=== PATIENT | male | born 1970 | race Caucasian/White ===

== ENCOUNTER 2016-12-26 18:38 | Inpatient (IN) | payer OTHER ==
--- NOTE | ~2016-12-26 | CR72 ---
[facility] A Service of [facility] & [facility] RADIOLOGY TEXT RESULTS PATIENT: YOLANDA ROGERS LOCATION: [facility] 328-01 : [birth year] UNIT #: [id number] AGE: [address]: Zaki Pop MD SEX: M ORDER DR: [id number] [facility] [address]. [place], [place] [address] [id number] I MR#: [id number] Acc #: [id number] NAME: YOLANDA ROGERS : 1970 SEX: M STUDY DATE/TIME: 12/26/2016 18:25 UNIT: [facility] ROOM: 10346 STUDY DESCRIPTION: CR Chest Single View Portable Attending Physician: Zaki Pop M.D. Ordering Physician: Lexie Barfield M.D. MEDICAL IMAGING REPORT This report is preliminary unless electronic signature is present EXAM Portable chest HISTORY Acute mental status decline, low oxygen saturation and chest pain today. FINDINGS The cardiac size and pulmonary vascularity are within normal limits. No airspace infiltrates or effusions. Right IJ port catheter tip is in the right atrium, 4.5 cm beyond the junction of the SVC and right atrium. Surgical clips in the left neck. IMPRESSION 1. No acute findings and no evidence of active disease. Lungs are clear. 2. Right IJ port catheter tip is in the right atrium 4.5 cm beyond the junction of the SVC and right atrium. Dictated by... Lonnie Garrido M.D. THIS IS AN ELECTRONICALLY VERIFIED REPORT Lonnie Garrido M.D. at 12/27/2016 11:35 PM DFJuan/ghulam TD: 12/27/2016 12:14 JOB #: [id number] MEDICAL IMAGING REPORT COPY
--- NOTE | ~2016-12-26 | CT71 ---
[facility] A Service of [facility] RADIOLOGY TEXT RESULTS PATIENT: YOLANDA ROGERS LOCATION: [facility] 328-01 : 66 UNIT #: [id number] AGE: [address]: Zaki Pop MD SEX: M ORDER DR: [id number] [facility] [address] [place], [place] [address] [id number] I MR#: [id number] Acc #: [id number] NAME: YOLANDA ROGERS : 1970 SEX: M STUDY DATE/TIME: 12/26/2016 18:11 [facility] RO[facility]: 91158 STUDY DESCRIPTION: CT Head Wo Contrast Attending Physician: Zaki Pop M.D. Ordering Physician: Lexie Barfield M.D. MEDICAL IMAGING REPORT This report is preliminary unless electronic signature is present EXAM CT brain without contrast HISTORY Acute mental status change and lethargy for 2 days. No recent injury. TECHNIQUE This CT examination was performed with one or more of the following radiation dose reduction techniques: automatic exposure control, adjustment of mA and/or kV according to patient size, and iterative reconstruction. FINDINGS CT brain without contrast demonstrates no intracranial hemorrhage, mass or edema. No midline shift or ventricular dilatation. No extraaxial fluid collection. Minimal chronic ischemic changes in the deep white matter bilaterally and mild generalized cerebral cortical atrophy. IMPRESSION 1. No acute findings. 2. Mild generalized cerebral cortical atrophy and minimal chronic ischemic changes in the deep white matter bilaterally. Dictated by... Lonnie Garrido M.D. THIS IS AN ELECTRONICALLY VERIFIED REPORT Lonnie Garrido M.D. at 12/27/2016 11:35 PM DFJuan/ghulam TD: 12/27/2016 12:13 JOB #: [id number] [facility] A Service of [facility] & [facility] RADIOLOGY TEXT RESULTS PATIENT: YOLANDA ROGERS LOCATION: [facility] 328-01 : 66 UNIT #: [id number] AGE: [address]: Zaki Pop MD SEX: M ORDER DR: MEDICAL IMAGING REPORT COPY
--- NOTE | ~2016-12-26 | HP ---
Unit #: [id number] #: [id number] Patient: YOLANDA ROGERS [id number] [address] [address] [id number] I MR#: [id number] NAME: YOLANDA ROGERS ROOM: 13062 Age: 46 Sex: M Admission Date: 12/27/2016 : 1970 Attending Physician: Zaki Pop M.D. HISTORY AND PHYSICAL CHIEF COMPLAINT Patient was transferred from detox for hypoxia and increasing confusion. DISCUSSION This is a 46-year-old gentleman with a history of alcohol abuse, history of seizures secondary to withdrawals, history of throat cancer. He admitted to [facility] on 12/22 for detox for alcohol and he has been found to be hypoxic and increasing confusion today and patient was sent to ER. Patient has one-to-one sitter at this time and patient is unable to give me any history. He is totally lethargic. He was given Ativan earlier in the ER. Now, totally lethargic, unable to give me any history. Most of the information obtained through chart. PAST MEDICAL HISTORY 1. History of throat cancer. 2. History of seizure secondary to alcohol withdrawal. 3. History of polysubstance abuse. PAST SURGICAL HISTORY 1. Questionable history of resection of left side of neck in 2016. 2. History of PEG in the past. SOCIAL HISTORY Patient has a history of drinking alcohol, who drinks a half gallon of vodka with mixed drinks with some beer on a daily basis. Also, Urine toxicology positive for marijuana. ALLERGIES No known drug allergies. MEDICATIONS Medications from transfer from [facility]: 1. Nicotine patch. 2. Seroquel 100 mg daily. 3. Seroquel 200 mg at bedtime. 4. Vitamin B1 200 mg daily. 5. Folic acid 1 mg daily. 6. Z-complex one capsule three times a day. 7. Lorazepam 0.5 mg daily. REVIEW OF SYSTEMS Twelve review of systems unobtainable from the patient. PHYSICAL EXAMINATION Unit #: [id number] #: [id number] Patient: YOLANDA ROGERS GENERAL: Middle aged man lying in the bed comfortably. He is sleeping, drowsy. He is alert, oriented x0 at this time. CURRENT VITAL SIGNS: Temperature 97.6, heart rate 99, respiratory rate 14, blood pressure 103/101. Oxygen 100% on room air. HEENT: Pupils equal, reactive to light and accommodation. Head is normocephalic, atraumatic. NECK: Supple. No JVD, no thyromegaly. HEART: S1, S2. Regular rate and rhythm. LUNGS: Clear to auscultation. No rhonchi, no wheezing. ABDOMEN: Soft, nontender, nondistended. EXTREMITIES: Inspection normal. No cyanosis, no clubbing, no edema. NEURO: Unable to do neuro exam at this time. DIAGNOSTIC STUDIES LABORATORY: White count 5, hemoglobin 11, hematocrit 32, platelets 101. INR is 1.4, lactic acid level 0.5. Chemistry - sodium 134, potassium 3.2, chloride 99, glucose (1) , BUN 5, creatinine 0.4. LFT within normal limits. UA is negative. Influenzae negative. Urine toxicology positive for benzo and marijuana and TCA. Alcohol level less than 5. ASSESSMENT AND PLAN 1. Alcohol withdrawal, delirium tremens: Will keep the patient on one-to-one. Start on CIWA protocol. IV fluids, D5 half normal saline with thiamine and folic acid. 2. History of throat cancer. 3. History of seizure secondary to alcohol withdrawal. 4. Polysubstance abuse. 5. Patient has hematuria secondary to traumatic Webb and the catheter urine now seems clear. 6. DVT prophylaxis: Will place the patient on SCDs. Dictated by Feliberto Alejandro TD: 12/27/2016 11:45 JOB #: [id number] Unit #: [id number] #: [id number] Patient: YOLANDA ROGERS HISTORY AND PHYSICAL X X HISTORY AND PHYSICAL
--- NOTE | ~2016-12-26 | OR ---
Unit #: [id number] #: [id number] Patient: YOLANDA ROGERS [id number] [address] [address] [id number] I MR#: [id number] NAME: YOLANDA ROGERS ROOM: 328 Date of Procedure: 12/30/2016 Admission Date: 12/27/2016 Surgeon: Isaias Gill M.D. : 1970 Attending Physician: Zaki Pop M.D. OPERATIVE REPORT PREOPERATIVE DIAGNOSES Gross hematuria, benign prostatic hypertrophy, urinary retention. POSTOPERATIVE DIAGNOSES Gross hematuria, benign prostatic hypertrophy, urinary retention. PROCEDURE PERFORMED Webb catheter insertion. Difficult Webb catheter by nursing. Urology consult for placement of Webb catheter. ANESTHESIA Local anesthesia with lidocaine jelly. DESCRIPTION OF PROCEDURE The patient was prepped and draped in the usual fashion. An 18-D[place]ib[place]ian 3-way catheter was placed into the bladder with aid of the catheter guide. There was return of clear urine. The balloon was filled with 20 mL of sterile water. The catheter was irrigated with return of clear urine and placed to gravity drainage. The patient tolerated the procedure well. ESTIMATED BLOOD LOSS 10 mL. COMPLICATIONS None. SPECIMENS None. DRAINS Webb catheter to gravity drainage. PLAN We will keep Webb catheter x1 week. We will start Flomax. Trial of void in 1 week either as an inpatient or outpatient. Dictated by... Feliberto Ramires/constance Unit #: [id number] #: [id number] Patient: YOLANDA ROGERS TD: 12/30/2016 22:38 JOB #: [id number] OPERATIVE REPORT Page 1 of 1 X ISAIAS GILL MD X PROCEDURE OPERATIVE NOTE
--- NOTE | ~2016-12-26 | EKG ---
PATIENT: YOLANDA ROGERS UNIT #: [id number] Ventricular Rate: 93 BPM Atrial Rate: 93 BPM P-R Interval: 144 ms QRS Duration: 78 ms Q-T Interval: 354 ms QTC Calculation(Bezet): 440 ms P [place]: 40 degrees Calculated R [place]: 1 degrees Calculated T [place]: 38 degrees Diagnosis Line: Normal sinus rhythm Diagnosis Line: Low voltage QRS Diagnosis Line: Poor R wave progression questionable lead position Diagnosis Line: or body habitus Otherwise normal ECG Diagnosis Line: When compared with ECG of 26-DEC-2016 18:41, Diagnosis Line: Premature atrial complexes are no longer Present Diagnosis Line: Confirmed by ДМИТРИЙ BRANCH MD ([id number]) on 01/02/2017 Diagnosis Line: 9:30:52 AM INTERPRETING MD: JOSE CARLOS KIRKPATRICK
--- NOTE | ~2016-12-26 | CO ---
Unit #: [id number] #: [id number] Patient: YOLANDA ROGERS [id number] [address] [place], [place] [address] [id number] I MR#: [id number] NAME: YOLANDA ROGERS ROOM: 328 Age: 46 Sex: M Admission Date: 12/27/2016 : 1970 Attending Physician: Zaki Pop M.D. CONSULTATION REPORT REASON FOR CONSULTATION Difficult catheter placement, gross hematuria, BPH. SERVICE Urology. HISTORY OF PRESENTING ILLNESS A 46-year-old gentleman with history of alcohol abuse and withdrawal, and admitted for confusion and hypoxia from detox. He did have a Webb catheter, which was questionable traumatic on placement. This was removed earlier today, was having blood per meatus, and three-way catheter was ordered to be placed, but difficult to be placed by nursing. Urology was consulted for difficult catheter placement and gross hematuria. There is no significant urologic history in chart review and in review of our urology records. PAST MEDICAL HISTORY Throat cancer, seizure secondary to alcohol withdrawal, polysubstance abuse. PAST SURGICAL HISTORY Questionable history of neck surgery, history of PEG in the past. SOCIAL HISTORY Illicit drug use and alcohol use. ALLERGIES Reviewed in the chart noted. MEDICATIONS Reviewed in the chart noted. REVIEW OF SYSTEMS The patient is not communicative and unable to be obtained. PHYSICAL EXAMINATION GENERAL: No apparent distress. VITAL SIGNS: Afebrile, vital signs stable. HEART: Regular rate and rhythm. LUNGS: Nonlabored breathing on room air. ABDOMEN: Soft, nontender, nondistended. EXTREMITIES: No clubbing, cyanosis, or edema. GENITOURINARY: Blood at the urethral meatus. Unit #: [id number] #: [id number] Patient: YOLANDA ROGERS ASSESSMENT 1. Benign prostatic hypertrophy. 2. Gross hematuria. 3. Difficult catheter insertion. PLAN Three-way catheter was placed with aid of a catheter guide. Return of clear urine. No blood or hematuria noted. Hematuria likely from prostatic trauma from previous Webb catheter. Webb catheter placed to gravity drainage, irrigated with clear return. We will start Flomax. Keep Webb catheter until acute issues resolve. Trial of void when mental status is better. It can be done as outpatient if the patient is inhouse in 1 week and catheter x1 week. We will arrange outpatient if discharged. Dictated by... Feliberto Ramires TD: 12/30/2016 03:39 JOB #: [id number] CONSULTATION REPORT Page 1 of 1 X AZAM GILL MD X CONSULTATION REPORT
--- NOTE | ~2016-12-26 | EKG ---
PATIENT: YOLANDA ROGERS UNIT #: [id number] Ventricular Rate: 89 BPM Atrial Rate: 89 BPM P-R Interval: 158 ms QRS Duration: 84 ms Q-T Interval: 380 ms QTC Calculation(Bezet): 462 ms P [place]: 63 degrees Calculated R [place]: 53 degrees Calculated T [place]: -24 degrees Diagnosis Line: Sinus rhythm with Premature atrial complexes Diagnosis Line: Low voltage QRS Diagnosis Line: Nonspecific T wave abnormality Diagnosis Line: Prolonged QT Diagnosis Line: Abnormal ECG Diagnosis Line: No previous ECGs available Diagnosis Line: Confirmed by ДМИТРИЙ BRANCH MD ([id number]) on 12/29/2016 Diagnosis Line: 7:24:37 AM INTERPRETING MD: JOSE CARLOS KIRKPATRICK
--- NOTE | ~2016-12-26 | CO ---
Unit #: [id number] #: [id number] Patient: YOLANDA ROGERS [id number] [address] [address] [id number] I MR#: [id number] NAME: YOLANDA ROGERS ROOM: 328 Age: 46 Sex: M Admission Date: 12/27/2016 : 1970 Attending Physician: Zaki Pop M.D. Consultation Date: 12/30/2016 CONSULTATION REPORT REASON FOR CONSULTATION Sinus tachycardia. 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 He denies ever having a history of myocardial infarction, stress test, or cardiac catheterization. The patient's past medical history includes: History of throat cancer requiring trach and PEG, seizures secondary to alcohol withdrawal, polysubstance abuse, and alcohol abuse. The patient was admitted to [facility] on December 22 for detox from alcohol when he was found to be hypoxic and having increasing confusion. The patient was sent to the ER and was admitted for further workup. During the patient's hospital course, he has been on the alcohol withdrawal protocol. On December 31, 2016, the patient had a Webb catheter removed and was unable to void. Reportedly, inserting that Webb catheter may have caused some trauma. Urology was consulted and a three-way Webb catheter was placed. This Webb catheter was still in place. Today, cardiology was consulted for sinus tachycardia with a rate in the 140s. The patient was given a fluid bolus and now his heart rate is down in the 100s. The patient denies any complaints of chest pain, shortness of air, fever, chills, diaphoresis, nausea or vomiting. PAST MEDICAL HISTORY 1. History of throat cancer requiring trach and PEG. 2. Seizures, secondary to alcohol withdrawal. 3. Alcohol use. 4. Polysubstance abuse. 5. Tobaccoism. PAST SURGICAL HISTORY Throat and jaw surgery requiring trach and PEG. ALLERGIES No known drug allergies. HOME MEDICATIONS 1. Vitamin B1 at 200 mg p.o. daily. 2. Folic acid 1 mg p.o. daily. 3. B complex one cap p.o. three times daily. 4. Multivitamin one tab p.o. daily. Unit #: [id number] #: [id number] Patient: YOLANDA ROGERS 5. Lorazepam 0.5 mg p.o. daily. 6. Nicotine patch. 7. Seroquel 100 mg p.o. daily. 8. Seroquel XR 200 mg p.o. at bedtime. FAMILY HISTORY Patient states that his mother had hypertension. SOCIAL HISTORY The patient reports drinking about a half gallon of Vodka with some beer on a daily basis. He does (1) marijuana. He also endorses smoking half pack of cigarettes per day for about 30 years. He says that he lives in an apartment and his sister lives across the [place] in the same apartment complex. REVIEW OF SYSTEMS A 10-point review of systems has been done and is considered otherwise negative unless indicated in the HPI. PHYSICAL EXAMINATION GENERAL: The patient is awake, alert, in no acute distress. He is sitting up in a chair. VITAL SIGNS: Temperature 98.1, heart rate 106, respirations 20, blood pressure 119/85, and he is oxygenating 100%. HEENT: Head is atraumatic, normocephalic. Pupils equal, round, and reactive. Extraocular movements are intact. NECK: Supple. He does have old surgical scarring. CHEST: Lungs are clear to auscultation bilaterally. No wheezes, rales, or rhonchi. CARDIOVASCULAR: S1, S2. Regular rate and rhythm. No murmurs, rubs, or gallops appreciated. ABDOMEN: Soft and nondistended. He is tender around an old PEG tube site that is healed. GENITOURINARY: The patient has a three-way Webb catheter in place with clear yellow urine. EXTREMITIES: No clubbing, edema, or cyanosis. NEUROLOGIC: The patient appears to be alert and oriented at this time. He does have some slurred speech secondary to his history of throat cancer. DIAGNOSTIC STUDIES LABORATORY: White blood cells 5.7, hemoglobin 10.6, hematocrit 30.8, platelets 117,000. Sodium 129, potassium 4.1, chloride 96, CO2 of 28, BUN less than 5, creatinine 0.3, glucose 98. Magnesium 1.5. Telemetry shows sinus tachycardia. ASSESSMENT 1. Sinus tachycardia. 2. Alcohol abuse with history of withdrawal seizures. 3. Hematuria secondary to Webb catheter trauma. 4. Polysubstance abuse. 5. History of throat cancer requiring trach and percutaneous endoscopic gastrostomy tube. 6. Tobaccoism. PLAN At this time, will check a EKG. Will check a BMP, magnesium, and TSH. We will obtain a 2D echo secondary to patient's sinus tachycardia and history of alcohol use. Will start the patient on metoprolol tartrate 12.5 mg Unit #: [id number] #: [id number] Patient: YOLANDA ROGERS p.o. b.i.d. first dose now. Will hold for heart rate less than 60 or systolic blood pressure less than 100. Will give the patient Tylenol 650 mg p.o. q.6 hours p.r.n. for pain. Will check a troponin and cardiac enzymes q.6 hours x2. Will start the patient on normal saline at 100 mL after his bolus is completed. Will give the patient magnesium 2 g IV x1. Dictated by... Silvina Jeffers A.P.R.N. for Pacheco Jameson M.D. AM/opal TD: 12/31/2016 17:18 JOB #: [id number] CONSULTATION REPORT Page 1 of 1 X Silvina Jeffers APRN X CONSULTATION REPORT
--- NOTE | ~2016-12-26 | DS ---
Unit #: [id number] #: [id number] Patient: YOLANDA ROGERS [id number] [address] [address] [id number] I MR#: [id number] NAME: YOLANDA ROGERS ROOM: 328 Age: 46 Sex: M Admission Date: 12/27/2016 : 1970 Discharge Date: 01/02/2017 Attending Physician: Zaki Pop M.D. DISCHARGE SUMMARY ADMITTING DIAGNOSIS Alcohol withdrawal. FURTHER DIAGNOSES 1. Sinus tachycardia. 2. Hematuria. 3. Depression. CONSULTANTS 1. Dr. Serrano. 2. Dr. Pacheco Jameson. 3. Dr. Esparza (1) . PROCEDURES DONE Webb catheter placement with three-way irrigation and status post removal. HISTORY OF PRESENTING ILLNESS The patient is a 46-year-old male with a past medical history of alcohol abuse, polysubstance abuse, history of throat cancer, status post surgery, was transferred from [facility] mainly for alcohol withdrawal and developing hypoxia. HOSPITAL COURSE He was kept on the alcohol withdrawal protocol. He slowly improved. He started to develop sinus tachycardia. Cardiology was consulted. They started him on low dose beta yunier and recommended no further workup. I spoke with Dr. Jameson this morning. He said it is okay to discharge him from his standpoint. Dr. Serrano evaluated the patient for alcohol withdrawal and substance abuse and he dose adjusted the medications. He had a Webb catheter replaced and after it was removed he had gross hematuria. Urology was consulted. They irrigated the bladder and his hematuria has improved from the time he was evaluated. He also has benign prostatic hypertrophy and urology recommended to keep him on Flomax. He is doing clinically better. He is more alert. He wants to go home. Dr. Serrano mentioned okay to let him go home. On the day of discharge, his physical examination: VITAL SIGNS - temperature 97.5, pulse rate 65, respiratory rate 18, blood pressure 109/80. The patient is alert and oriented x3, lying in the bed, in no Unit #: [id number] #: [id number] Patient: YOLANDA ROGERS acute distress. HEENT - normocephalic, atraumatic. No icterus. PERRLA. Extraocular movements intact. NECK is supple. No JVD. HEART - S1, S2. Regular rate and rhythm. CHEST - bilateral equal air entry, clear to auscultation. ABDOMEN soft, nontender. EXTREMITIES - no edema, normal pulses. He does have old well-healed surgical scars from the throat cancer on his extremities from the skin graft that was obtained. DISCHARGE MEDICATIONS Include: 1. Magnesium oxide 400 mg p.o. b.i.d. 2. Protonix 40 mg daily. 3. Celexa 20 mg at bedtime. 4. Haldol 2 mg at bedtime. 5. Librium 25 mg at bedtime. 6. Lopressor 12.5 mg p.o. q.12. 7. Multivitamin one capsule p.o. daily. 8. Protonix 40 mg daily. 9. Thiamine 100 mg p.o. daily. 10. Folic acid 1 mg daily. He was instructed to follow with his primary care in one to two weeks. Total time spent in his care - 35 minutes. Dictated by... Feliberto Valdez/samuel TD: 01/02/2017 12:41 JOB #: [id number] DISCHARGE SUMMARY Page 1 of 1 X X DISCHARGE SUMMARY
--- NOTE | ~2016-12-26 | CO ---
Unit #: [id number] #: [id number] Patient: YOLANDA ROGERS [id number] [address] [address] [id number] MR#: [id number] NAME: YOLANDA ROGERS ROOM: 328 Age: 46 Sex: M Admission Date: 12/27/2016 : 1970 Attending Physician: Zaki Pop M.D. Consultation Date: 01/01/2017 CONSULTATION REPORT REASON FOR CONSULTATION Alcohol abuse, alcohol withdrawal, and delirium. HISTORY OF PRESENT ILLNESS Mr. Yolanda Rogers is a 46-year-old male, seen on 01/01/2017 at [facility] with the above-mentioned complaint. The patient was pleasant and cooperative during the interview. Reported he was admitted on 12/27/2016 due to detox and hypoxia. The patient was having increasing problem with the confusion. The patient was having withdrawals from alcohol, has a history of seizure. The patient has a history of throat cancer. The patient was able to answer questions appropriately. Reports that he is feeling better, but still having shakes and anxiety. The patient has some difficulty articulating because of his surgery in the past on his mandible area. The patient reports that he is cleared to go home, but still having some anxiety, nervousness, trouble sleeping, shakes. The patient does report takes Seroquel for mood symptom. The patient currently denied any suicidal or homicidal ideation. Denied any psychotic symptom. PAST PSYCHIATRIC HISTORY Remarkable for history of depression and anxiety, history of alcohol abuse. No history of any inpatient treatment. PAST MEDICAL HISTORY History of throat cancer, history of seizures secondary to alcohol withdrawal, history of polysubstance abuse, history of resection of left side of his neck in 2016, history of PEG in the past. MEDICATIONS The patient is on Seroquel 200 mg at bedtime, vitamin B1, folic acid, B complex, lorazepam. Please refer to H and P for detail. FAMILY HISTORY AND SOCIAL HISTORY The patient reports that he has good support from family. No history of any abuse. History of substance abuse as mentioned above. REVIEW OF SYSTEMS Complete review of systems is remarkable for the patient complaining of anxiety, shakes, hand tremors, nervousness. MENTAL STATUS EXAMINATION General appearance, the patient dressed casually in hospital attire, sitting comfortably in chair. Made good eye contact. Pleasant and cooperative. Noticed difficulty in articulation. Attention span and Unit #: [id number] #: [id number] Patient: YOLANDA ROGERS concentration, fair. Speech, regular rate and coherent. Oriented in time, place, and person. Mood and affect were sad, dysphoric, anxious. Thought process, goal directed. Thought content, the patient denied any thoughts of harming self or others, but guarded. Recent and remote memory, fair. Language, able to name object, repeat phrases. Fund of knowledge, fair. Insight and judgment, fair to slightly impaired. DIAGNOSES Psychiatric: Alcohol use disorder, severe, F10.20; bipolar mood disorder, not otherwise specified, F31.89. Secondary diagnosis: Deferred. Medical diagnosis: Please refer to H and P. Stressors: Psychosocial stressors. ASSESSMENT AND PLAN 1. Supportive psychotherapy and psychoeducation provided to the patient. 2. Educated about benefits and side effects of his medication and course and prognosis of illness. 3. The patient was advised to continue with Seroquel. The patient was advised to follow up at CD-IOP program at [facility] and given crisis line number [phone]. Please feel free to call if any questions telephone [phone]. Dictated by... Jesus Serrano M.D. HERBERT/constance TD: 01/05/2017 00:17 JOB #: [id number] CONSULTATION REPORT Page 1 of 1 X Jesus Serrano MD X CONSULTATION REPORT
--- NOTE | ~2016-12-26 | A ---
[facility] Nutrition Therapy DATE: 12/30/16 Patient: YOLANDA ROGERS Physician: MAI Address: [address] Room/Bed: [address] [place] [address], Zip: [place] [address] Admit Date: 12/27/16 Date of : [birth year] Height: 5 8 Weight: 132 60 NUTRITIONAL ASSESSMENT: REASON: Consult RE: mild malnutrition with poor intake due to EtOH abuse 46 yo male admitted for EtOH withdrawal with delirium PMH: h/o throat cancer, h/o PEG placement, seizures, polysubstance and alcohol abuse, seizures Anthropometrics: Ht: 5'8" Wt: 60 kg (standing) BMI: 20.1 IBW: 70 kg, 86% IBW Labs: Na+ 131 Cl- 99 BUN <5 Creat 0.5 Ca++ 8.2 AST 45 Meds: Therapeutic formula, protonix, phenergan, loperamide, MgSO4, KCl, D5%, folvite, thiamine I/O & Bowel function: 2605/1600, last BM 12/26 Skin Integrity: Petechia BUE Old skin graft LFA Swollen left check Edema: none noted Estimated Nutrition Needs: Increased d/t low body weight Diet: Pureed with thin liquids Assessment: Chart reviewed, events noted. Per REFRACTORY TECHNICIAN evaluation in chart, the pt has dysphagia. Pt has been ordered a puree diet with thin liquids per REFRACTORY TECHNICIAN recommendations. Pt needs feeding assistance per REFRACTORY TECHNICIAN note. RD consulted to see the pt for malnutrition d/t EtOH abuse. Per MD note, the pt consumes half and gallon of vodka daily. RD spoke with the pt, who was up in the chair at time of visit. Pt reports a UBW of ~147#. Pt's standing scale weight was 132# today, indicating ~15# weight loss from the pt's UBW. Pt reports consuming ~50% of meals. RD observed the pt's lunch tray, which he consumed about 30% of. Pt states he is still working on his lunch tray. Per I/Os sheet in room, the pt consumed 25% of breakfast. Pt is agreeable to Ensure supplements and did not have any questions regarding nutrition. Dx: Inadequate oral intake RT dysphagia AEB 86% IBW, diet order, 25-40% intake of meals, REFRACTORY TECHNICIAN evaluation, presumed weight loss of 15#. Intervention: [facility] Nutrition Therapy DATE: 12/30/16 Patient: YOLANDA ROGERS Physician: MAI Address: [address] [place] [address] Room/Bed: [address] [place] [address], Zip: [place] [id number] Admit Date: 12/27/16 Date of : [birth year] Height: 5 8 Weight: 132 60 1. Diet per REFRACTORY TECHNICIAN 2. Ensure TID Monitoring, Evaluation and Goals: 1. Oral intake; tolerate >50-75% of meals and supplements 2. Labs; WNL: electrolytes, BUN, creat, AST 3. Weight; preserve lean body mass, prevent unintentional weight loss 4. GI; promote regular GI function Recommendations: 1. Continue diet per REFRACTORY TECHNICIAN recommendations. No further dietary restrictions recommended at this time. 2. Ensure (chocolate) TID with meals for supplemental nutrition. 3. Appreciate staff encouraging and assisting with PO intake as needed. 4. Continue MVI with minerals due to the pt's EtOH abuse. Pt is at mild-moderate nutritional risk. RD will follow hospital course per protocol. Respectfully, BRANT LEMA RD, LD [facility] cc: client file
[2016-12-26 17:46] LABS: BASOPHIL% 0.4 % (0-2.5); EOSINOPHIL# 0.2 X10e3 (0-0.7); EOSINOPHIL% 3.2 % (0.0-7.0); HEMATOCRIT 32.9 % (38.0-50.0); LYMPHOCYTE# 0.6 X10e3 (1.0-3.5); LYMPHOCYTE% 11.1 % (17.0-45.0); MEAN CELL VOLUME 99.8 FL (83-96); MEAN CORPUSCULAR HEMOGLOBIN 33.2 PG (28-34); MEAN CORPUSCULAR HGB CONC 33.3 g/dL (30-36); MEAN PLATELET VOLUME 8.1 FL (6.5-11.5); MONOCYTE# 0.7 X10e3 (0-1.0); MONOCYTE% 13.2 % (3.0-12.0); NEUTROPHIL# 3.7 X10e3 (1.5-7.1); NEUTROPHIL% 72.1 % (40-75); PLATELET COUNT 101 X10e3 (140-420); RED CELL DISTRIBUTION WIDTH 15.9 % (11.0-15.5); WHITE BLOOD COUNT 5.2 X10e3 (4.0-10.5)
[2016-12-26 17:48] LABS: DIFF IND NO
[2016-12-26 17:59] LABS: INR 1.4; PARTIAL THROMBOPLASTIN TIME 44.4 SECONDS (23.5-31.3); PROTHROMBIN TIME (PATIENT) 14.8 SECONDS (9.6-11.5)
[2016-12-26 18:10] LABS: ALBUMIN SERUM 2.9 g/dL (3.5-5.0); ALKALINE PHOSPHATASE 100 U/L (32-92); ALT (SGPT) 17 U/L (10-40); AST (SGOT) 54 U/L (10-42); BILIRUBIN, DIRECT 0.7 mg/dL (0.0-0.2); BILIRUBIN,INDIRECT 1.1 mg/dL (0.0-0.9); BILIRUBIN,TOTAL 1.8 mg/dL (0.2-2.0); CALCIUM SERUM 8.4 mg/dL (8.4-10.2); CARBON DIOXIDE 25 mmol/L (22-31); CHLORIDE 99 mmol/L (100-111); CPK (CREATINE PHOSPHOKINASE) 65 IU/L (36-174); CREATININE SERUM 0.4 mg/dL (0.6-1.4); GLOM FILT RATE Estimated ABOVE60 mL/min (>60); GLUCOSE FASTING 78 mg/dL (70-110); POTASSIUM 3.2 mmol/L (3.5-5.1); PROTEIN TOTAL SERUM 6.4 g/dL (6.0-8.3); SODIUM 134 mmol/L (135-145)
[2016-12-26 18:11] LABS: ALCOHOL BLOOD <5 mg/dL (0); BLOOD UREA NITROGEN <5 mg/dL (9-23)
[2016-12-26 19:28] LABS: INFLUENZA A NEG (NEG); INFLUENZA B NEG (NEG)
[2016-12-26 21:05] LABS: URINE SOURCE CLEAN CATCH
[2016-12-26 21:12] LABS: URINE APPEARANCE CLEAR; URINE BLOOD 1+ (NEG); URINE COLOR DK YELLOW; URINE GLUCOSE NEG (NEG); URINE KETONE 1+ (NEG); URINE LEUKOCYTE ESTERASE NEG (NEG); URINE NITRATE NEG (NEG); URINE PROTEIN NEG (NEG); URINE SPECIFIC GRAVITY 1.012 (1.003-1.035)
[2016-12-26 21:14] LABS: URINE BACTERIA AUWI NEG (NEGATIVE); URINE SQUAMOUS EPITHELIAL CELL NONE SEEN /[HPF]; UWBCS1 AUWI 0-2 (0-5)
[2016-12-26 21:18] LABS: CULTURE INDICATED? NO
[2016-12-26 21:20] LABS: URINE BILIRUBIN POS (NEG)
[2016-12-26 21:23] LABS: AMPHETAMINE NEG (NEG); BARBITURATES NEG (NEG); BENZODIAZEPINES POS (NEG); COCAINE NEG (NEG); MARIJUANA POS (NEG); OPIATES NEG (NEG); TRICYCLIC ANTIDEPRESSANTS POS (NEG); U METHADONE NEG (NEG)
[2016-12-26] MEDS ORDERED: VITAMIN B-1100 M1 PO (22:14)
[2016-12-26] MEDS ORDERED: FOLIC ACID PO (22:14)
[2016-12-26] MEDS ORDERED: B COMPLEX1 CA1 PO (22:15)
[2016-12-26] MEDS ORDERED: MULTI-VITAMIN1 EAC1 PO (22:15)
[2016-12-26] MEDS ORDERED: ATIVAN PO (22:16)
[2016-12-26] MEDS ORDERED: NICOTINE TRANSDE7 MG TOP (22:17)
[2016-12-26] MEDS ORDERED: SEROQUEL XR200 MG PO (22:17)
[2016-12-26] MEDS ORDERED: SEROQUEL50 MG DOB (22:17)
[2016-12-27 04:41] LABS: CALCIUM SERUM 7.3 mg/dL (8.4-10.2); CARBON DIOXIDE 22 mmol/L (22-31); CHLORIDE 99 mmol/L (100-111); CREATININE SERUM 0.3 mg/dL (0.6-1.4); GLOM FILT RATE Estimated ABOVE60 mL/min (>60); GLUCOSE FASTING 282 mg/dL (70-110); POTASSIUM 3.9 mmol/L (3.5-5.1); SODIUM 129 mmol/L (135-145)
[2016-12-27 04:42] LABS: BLOOD UREA NITROGEN <5 mg/dL (9-23); BUN/CREATININE RATIO 16.66
[2016-12-28 05:56] LABS: HEMATOCRIT 31.2 % (38.0-50.0); HEMOGLOBIN 10.5 gm/dL (13.0-16.0); MEAN CELL VOLUME 99.5 FL (83-96); MEAN CORPUSCULAR HEMOGLOBIN 33.4 PG (28-34); MEAN CORPUSCULAR HGB CONC 33.6 g/dL (30-36); MEAN PLATELET VOLUME 8.5 FL (6.5-11.5); RED BLOOD COUNT 3.13 X10e (3.90-5.60); RED CELL DISTRIBUTION WIDTH 16.1 % (11.0-15.5); WHITE BLOOD COUNT 5.9 X10e3 (4.0-10.5)
[2016-12-28 07:40] LABS: ALBUMIN SERUM 2.5 g/dL (3.5-5.0); ALKALINE PHOSPHATASE 103 U/L (32-92); ALT (SGPT) 18 U/L (10-40); AST (SGOT) 45 U/L (10-42); BILIRUBIN,TOTAL 1.3 mg/dL (0.2-2.0); CALCIUM SERUM 7.7 mg/dL (8.4-10.2); CARBON DIOXIDE 27 mmol/L (22-31); CHLORIDE 99 mmol/L (100-111); CREATININE SERUM 0.5 mg/dL (0.6-1.4); GLOM FILT RATE Estimated ABOVE60 mL/min (>60); GLUCOSE FASTING 127 mg/dL (70-110); MAGNESIUM 1.7 mg/dL (1.6-3.0); POTASSIUM 3.3 mmol/L (3.5-5.1); PROTEIN TOTAL SERUM 5.8 g/dL (6.0-8.3); SODIUM 131 mmol/L (135-145)
[2016-12-28 07:41] LABS: BLOOD UREA NITROGEN <5 mg/dL (9-23)
[2016-12-29 06:17] LABS: HEMATOCRIT 30.9 % (38.0-50.0); HEMOGLOBIN 10.3 gm/dL (13.0-16.0); MEAN CELL VOLUME 99.8 FL (83-96); MEAN CORPUSCULAR HEMOGLOBIN 33.2 PG (28-34); MEAN CORPUSCULAR HGB CONC 33.3 g/dL (30-36); MEAN PLATELET VOLUME 8.7 FL (6.5-11.5); RED BLOOD COUNT 3.1 X10e (3.90-5.60); RED CELL DISTRIBUTION WIDTH 16.1 % (11.0-15.5)
[2016-12-29 06:55] LABS: ALBUMIN SERUM 2.4 g/dL (3.5-5.0); ALKALINE PHOSPHATASE 106 U/L (32-92); ALT (SGPT) 18 U/L (10-40); AST (SGOT) 45 U/L (10-42); BILIRUBIN,TOTAL 1.1 mg/dL (0.2-2.0); CARBON DIOXIDE 26 mmol/L (22-31); CHLORIDE 99 mmol/L (100-111); CREATININE SERUM 0.4 mg/dL (0.6-1.4); GLOM FILT RATE Estimated ABOVE60 mL/min (>60); GLUCOSE FASTING 105 mg/dL (70-110); MAGNESIUM 1.8 mg/dL (1.6-3.0); POTASSIUM 3.9 mmol/L (3.5-5.1); PROTEIN TOTAL SERUM 5.7 g/dL (6.0-8.3); SODIUM 131 mmol/L (135-145)
[2016-12-29 07:05] LABS: BLOOD UREA NITROGEN <5 mg/dL (9-23)
[2016-12-29 23:14] LABS: URINE SOURCE CLEAN CATCH
[2016-12-29 23:25] LABS: URINE APPEARANCE CLOUDY; URINE BILIRUBIN NEG (NEG); URINE BLOOD 3+ (NEG); URINE COLOR ORANGE; URINE GLUCOSE NEG (NEG); URINE KETONE NEG (NEG); URINE LEUKOCYTE ESTERASE TRACE (NEG); URINE NITRATE NEG (NEG); URINE PH 8.5 (5-8); URINE PROTEIN 1+ (NEG); URINE SPECIFIC GRAVITY 1.011 (1.003-1.035)
[2016-12-29 23:27] LABS: URBCS1 AUWI INNUM /[HPF] (0-2); URINE BACTERIA AUWI NEG (NEGATIVE); URINE SQUAMOUS EPITHELIAL CELL NONE SEEN /[HPF]; UWBCS1 AUWI 0-2 (0-5)
[2016-12-30 07:35] LABS: CALCIUM SERUM 8.2 mg/dL (8.4-10.2); CARBON DIOXIDE 28 mmol/L (22-31); CHLORIDE 99 mmol/L (100-111); CREATININE SERUM 0.5 mg/dL (0.6-1.4); GLOM FILT RATE Estimated ABOVE60 mL/min (>60); GLUCOSE FASTING 91 mg/dL (70-110); MAGNESIUM 1.7 mg/dL (1.6-3.0); POTASSIUM 4.3 mmol/L (3.5-5.1); SODIUM 131 mmol/L (135-145)
[2016-12-30 07:39] LABS: BLOOD UREA NITROGEN <5 mg/dL (9-23)
[2016-12-31 09:03] LABS: HEMATOCRIT 30.8 % (38.0-50.0); HEMOGLOBIN 10.6 gm/dL (13.0-16.0); MEAN CORPUSCULAR HEMOGLOBIN 34.1 PG (28-34); MEAN CORPUSCULAR HGB CONC 34.4 g/dL (30-36); MEAN PLATELET VOLUME 9.2 FL (6.5-11.5); RED BLOOD COUNT 3.12 X10e (3.90-5.60); RED CELL DISTRIBUTION WIDTH 15.8 % (11.0-15.5); WHITE BLOOD COUNT 5.7 X10e3 (4.0-10.5)
[2016-12-31 09:48] LABS: CALCIUM SERUM 8.4 mg/dL (8.4-10.2); CARBON DIOXIDE 28 mmol/L (22-31); CHLORIDE 96 mmol/L (100-111); CREATININE SERUM 0.3 mg/dL (0.6-1.4); GLOM FILT RATE Estimated ABOVE60 mL/min (>60); GLUCOSE FASTING 98 mg/dL (70-110); POTASSIUM 4.1 mmol/L (3.5-5.1); SODIUM 129 mmol/L (135-145)
[2016-12-31 09:51] LABS: BLOOD UREA NITROGEN <5 mg/dL (9-23); BUN/CREATININE RATIO 16.66
[2016-12-31 16:25] LABS: CK TOTAL 14 IU/L (36-174)
[2016-12-31 21:38] LABS: CK TOTAL 21 IU/L (36-174)
[2017-01-01 11:06] LABS: HEMATOCRIT 30.4 % (38.0-50.0); HEMOGLOBIN 10.1 gm/dL (13.0-16.0); MEAN CELL VOLUME 99.7 FL (83-96); MEAN CORPUSCULAR HEMOGLOBIN 33.1 PG (28-34); MEAN CORPUSCULAR HGB CONC 33.2 g/dL (30-36); MEAN PLATELET VOLUME 9.2 FL (6.5-11.5); RED BLOOD COUNT 3.05 X10e (3.90-5.60); RED CELL DISTRIBUTION WIDTH 15.5 % (11.0-15.5); WHITE BLOOD COUNT 4.2 X10e3 (4.0-10.5)
[2017-01-01 13:03] LABS: ALBUMIN SERUM 2.5 g/dL (3.5-5.0); ALKALINE PHOSPHATASE 100 U/L (32-92); ALT (SGPT) 18 U/L (10-40); AST (SGOT) 49 U/L (10-42); BILIRUBIN,TOTAL 0.8 mg/dL (0.2-2.0); CALCIUM SERUM 8.3 mg/dL (8.4-10.2); CARBON DIOXIDE 26 mmol/L (22-31); CHLORIDE 95 mmol/L (100-111); CREATININE SERUM 0.4 mg/dL (0.6-1.4); GLOM FILT RATE Estimated 140.5 mL/min (>60); GLUCOSE FASTING 88 mg/dL (70-110); MAGNESIUM 1.4 mg/dL (1.6-3.0); PROTEIN TOTAL SERUM 5.9 g/dL (6.0-8.3); SODIUM 126 mmol/L (135-145)
[2017-01-01 13:07] LABS: BLOOD UREA NITROGEN <5 mg/dL (9-23)
[2017-01-02 08:45] LABS: CALCIUM SERUM 8.2 mg/dL (8.4-10.2); CARBON DIOXIDE 27 mmol/L (22-31); CHLORIDE 95 mmol/L (100-111); CREATININE SERUM 0.4 mg/dL (0.6-1.4); GLOM FILT RATE Estimated 140.5 mL/min (>60); GLUCOSE FASTING 88 mg/dL (70-110); MAGNESIUM 1.5 mg/dL (1.6-3.0); POTASSIUM 4.1 mmol/L (3.5-5.1); SODIUM 126 mmol/L (135-145)
[2017-01-02 08:48] LABS: BLOOD UREA NITROGEN <5 mg/dL (9-23)
[2017-01-02] MEDS ORDERED: FLOMAX0.4 M1 PO (13:01)
[2017-01-02] MEDS ORDERED: MAG-OXIDE400 MG PO (13:02)
[2017-01-02] MEDS ORDERED: CELEXA20 M1 PO (13:03)
[2017-01-02] MEDS ORDERED: HALDOL PO (13:03)
[2017-01-02] MEDS ORDERED: LIBRIUM25 M1 PO (13:04)
[2017-01-02] MEDS ORDERED: LOPRESSOR PO (13:05)
[2017-01-02] MEDS ORDERED: PROTONIX PO (13:06)
[2017-01-02] MEDS ORDERED: FOLIC ACID1 MG PO (13:06)
== END 2017-01-02 18:41 | disposition home or self-care (01) | DRG 897 ==
LOC: CED 18:38 → CEDOF 12-27 00:20 → C3A PCU 12-27 21:01
PROVIDERS: Emergency Medicine; Internal Medicine
PROC: HZ2ZZZZ Detoxification Services for Substance Abuse Treatment (ICD-10-PCS; principal; 2016-12-27)
PROC: 0T9B70Z Drainage of Bladder with Drainage Device, Via Natural or Artificial Opening (ICD-10-PCS; 2016-12-30)
DX: F10.231 Alcohol dependence with withdrawal delirium (principal); E44.0 Moderate protein-calorie malnutrition; F31.89 Other bipolar disorder; F19.10 Other psychoactive substance abuse, uncomplicated; Y90.0 Blood alcohol level of less than 20 mg/100 ml; R00.0 Tachycardia, unspecified; R31.0 Gross hematuria; F10.20 Alcohol dependence, uncomplicated; R09.02 Hypoxemia; N40.1 Benign prostatic hyperplasia with lower urinary tract symptoms; R33.8 Other retention of urine; F17.210 Nicotine dependence, cigarettes, uncomplicated; T83.098A Other mechanical complication of other urinary catheter, initial encounter; Y73.1 Therapeutic (nonsurgical) and rehabilitative gastroenterology and urology devices associated with adverse incidents; Y92.239 Unspecified place in hospital as the place of occurrence of the external cause; I10 Essential (primary) hypertension; E87.6 Hypokalemia; Z68.20 Body mass index [BMI] 20.0-20.9, adult; Z82.49 Family history of ischemic heart disease and other diseases of the circulatory system; Z85.89 Personal history of malignant neoplasm of other organs and systems
CPT/HCPCS: 51702; 70450; 71010; 80048; 80053; 80076; 80307; 81003; 82550; 83605; 83735; 84132; 84443; 84484; 85025; 85027; 85610; 85730; 87804; 90688; 92526; 92610; 93005; 94762; 96361; 96374; 96376; 97110; 97116; 97162; 97166; 97530; 99285; G0480; J1642; J2060; J3411; J3475; J3480; J7042